=== PATIENT | female | born 1960 | race Caucasian/White ===

== ENCOUNTER 2018-10-25 12:41 | Emergency (ER) | payer BC ==
[~2018-10-25] VITALS: Ht 165.1 cm; Wt 138.8 kg
[2018-10-25] MEDS ORDERED: dexamethasone sod phosphate 10mg/ml inj IV STA (12:57)
[2018-10-25] MEDS ORDERED: LORazepam 2 mg/ml vial IV ONE (13:00)
[2018-10-25] MEDS ORDERED: normal saline 1000ML IV soln IVB ONE (13:00)
[2018-10-25] MEDS ORDERED: metoclopramide 5 mg/ml inj IV ONE (13:00)
[2018-10-25] MEDS ORDERED: ketorolac trometh. 30mg/ml inj. IV ONE (13:00)
[2018-10-25 14:08] VITALS: BP 162/83
== END 2018-10-25 14:10 | disposition home or self-care (01) ==
LOC: ER 12:43
DX: G43.909 Migraine, unspecified, not intractable, without status migrainosus (principal)
CPT/HCPCS: 96374; 96375; 99283; J1100; J1885; J2060; J2765; J7030; 96361